=== PATIENT | female | born 1940 | race Caucasian/White ===

== ENCOUNTER 2017-11-08 19:32 | Inpatient (IN) | payer MEDICARE, BC ==
[~2017-11-08] VITALS: Ht 162.6 cm; Wt 68.0 kg
[2017-11-08] MEDS ORDERED: CHOL200078 PO (20:02)
[2017-11-08] MEDS ORDERED: ESCI20TA PO (20:02)
[2017-11-08] MEDS ORDERED: MULT1TAB73 PO (20:02)
[2017-11-08] MEDS ORDERED: PRAV10TA40 PO (20:02)
[2017-11-08] MEDS ORDERED: LISI10TA5 PO (20:02)
[2017-11-08 20:11] LABS: BASOPHILS # (AUTO) 0.1 K/uL (0.0-8.0); EOSINOPHILS # (AUTO) 0.1 K/uL (0.0-0.7); EOSINOPHILS % (AUTO) 1.3 % (0.0-7.0); HEMATOCRIT 36.5 % (31.2-41.9); HEMOGLOBIN 12.3 g/dL (10.9-14.3); LYMPHOCYTES # (AUTO) 1.7 K/uL (20.0-40.0); LYMPHOCYTES % (AUTO) 24.2 % (20.5-51.5); MEAN CORPUSCULAR HEMOGLOBIN 29.7 uug (24.7-32.8); MEAN CORPUSCULAR HGB CONC 34 g/dL (32.3-35.6); MONOCYTES # (AUTO) 0.5 K/uL (2.0-10.0); MONOCYTES % (AUTO) 7.4 % (0.0-11.0); NEUTROPHILS # (AUTO) 4.6 K/uL (1.8-8.9); NEUTROPHILS % (AUTO) 66.1 % (38.5-71.5); PLATELET COUNT (AUTO) 164 K/uL (179-408); RED BLOOD CELL COUNT(AUTO) 4.15 MIL/uL (3.63-4.92)
[2017-11-08 20:25] LABS: CARBON DIOXIDE 28 mmol/L (21-32); CHLORIDE 105 mmol/L (98-107); CREATININE 1.1 mg/dL (0.6-1.3); GLUCOSE 84 mg/dL (74-106); UREA NITROGEN, BLOOD 20 mg/dL (7-18)
[2017-11-08 20:34] LABS: ALANINE AMINOTRANSFERASE 20 U/L (14-59); ALKALINE PHOSPHATASE 52 U/L (50-136); ASPARTATE AMINOTRANSFERASE 30 U/L (15-37); BILIRUBIN,DIRECT 0.1 mg/dL (0.0-0.2); BILIRUBIN,TOTAL 0.3 mg/dL (0.2-1.0); TOTAL PROTEIN, SERUM 7.2 g/dL (6.4-8.2)
[2017-11-08] MEDS ORDERED: ONDANSETRON 4 MG/2 ML VIAL IV ONE (20:45)
[2017-11-08] MEDS ORDERED: MORPHINE SULFATE 2 MG/1 ML DISP.SYRIN IV ONE (20:45)
[2017-11-08] MEDS ORDERED: MORPHINE SULFATE 4 MG/1 ML DISP.SYRIN ONE (20:56)
--- NOTE | 2017-11-08 20:56 | NUR ---
Call placed to [facility] FERNANDEZ speaking with Magui Phillips.
[2017-11-08] MEDS ORDERED: ONDANSETRON 4 MG/2 ML VIAL ONE (20:57)
[2017-11-08] MEDS ORDERED: MORPHINE SULFATE 2 MG/1 ML DISP.SYRIN ONE (20:57)
--- NOTE | 2017-11-08 21:02 | NUR ---
Call placed to Dr. Galdamez (ORTH[facility]), will be paged.
--- NOTE | 2017-11-08 21:31 | NUR ---
Pt. admitted to [facility], under care of Magui Phillips Belongs List completed
[2017-11-08 22:00] VITALS: BP 144/65
--- NOTE | 2017-11-08 22:00 | NUR ---
nsg: Pt received a/o x 4 fr er with dx of left hip fracture. c/o left hip pain, 06/18. stated morphine that was given in er did not work. v/s stable. on bedrest. patient refused f/c insertion. cont to monitor.
[2017-11-08] MEDS ORDERED: ALEN70TA3 PO (22:43)
[2017-11-08] MEDS ORDERED: ZOLPIDEM 5 MG TABLET PO PRN (23:00)
[2017-11-08] MEDS ORDERED: MAGNESIUM HYDROXIDE 30 ML LIQUID UDC PO PRN (23:00)
[2017-11-08] MEDS ORDERED: ACETAMINOPHEN 325 MG TABLET PO PRN (23:00)
[2017-11-08] MEDS ORDERED: ONDANSETRON 4 MG/2 ML VIAL IV PRN (23:00)
[2017-11-08] MEDS: HYDROMORPHONE 2 MG/1 ML DISP.SYRIN IV PRN (23:22)
[2017-11-08] MEDS: ENOXAPARIN SODIUM 40 MG/0.4 ML DISP.SYRIN SQ SCH (23:23)
[2017-11-08] MEDS: IV NS 1000 ML 1,000 ML IV PRN (23:24)
[2017-11-08] MEDS ORDERED: HYDROMORPHONE 2 MG/1 ML DISP.SYRIN ONE (23:30)
[2017-11-08] MEDS ORDERED: ENOXAPARIN SODIUM 40 MG/0.4 ML DISP.SYRIN SQ ONE (23:30)
--- NOTE | 2017-11-08 23:53 | NUR ---
CATY spoke to Dr. Galdamez.
[2017-11-09 03:54] VITALS: BP 122/59
[2017-11-09] MEDS: HYDROMORPHONE 2 MG/1 ML DISP.SYRIN IV PRN (03:56)
[2017-11-09] MEDS ORDERED: HYDROMORPHONE 2 MG/1 ML DISP.SYRIN ONE (04:11)
--- NOTE | 2017-11-09 05:21 | NUR ---
nsg: no acute distress noted. denies discomfort. tele, SR. kept clean and dry. repositioned. all needs attended. Addendum: 11/09/17 at 0554 by LOS ABEBE RN WRONG PATIENT.......
--- NOTE | 2017-11-09 05:22 | NUR ---
NSG: UNABLE TO INSERT F/C. CHARGE NURSE AND I ATTEMPTED TO INSERT F/C WITH NO SUCCESS.
--- NOTE | 2017-11-09 06:00 | NUR ---
NSG: PT COMFORTABLE IN BED AT THIS TIME. UNABLE TO INSERT F/C. ON BEDREST. CONT WITH TREATMENT PLAN.
[2017-11-09 07:03] LABS: BASOPHILS % (AUTO) 0.5 % (0.0-2.0); EOSINOPHILS % (AUTO) 0.4 % (0.0-7.0); HEMATOCRIT 33.7 % (31.2-41.9); HEMOGLOBIN 11.3 g/dL (10.9-14.3); LYMPHOCYTES # (AUTO) 1.3 K/uL (20.0-40.0); LYMPHOCYTES % (AUTO) 17.2 % (20.5-51.5); MEAN CORPUSCULAR HEMOGLOBIN 29.5 uug (24.7-32.8); MEAN CORPUSCULAR HGB CONC 34 g/dL (32.3-35.6); MEAN CORPUSCULAR VOLUME 88.1 fL (75.5-95.3); MONOCYTES # (AUTO) 0.7 K/uL (2.0-10.0); MONOCYTES % (AUTO) 9.5 % (0.0-11.0); NEUTROPHILS # (AUTO) 5.3 K/uL (1.8-8.9); NEUTROPHILS % (AUTO) 72.4 % (38.5-71.5); PLATELET COUNT (AUTO) 144 K/uL (179-408); RED BLOOD CELL COUNT(AUTO) 3.83 MIL/uL (3.63-4.92); WHITE BLOOD COUNT (AUTO) 7.4 K/uL (3.8-11.8)
[2017-11-09 07:21] LABS: CARBON DIOXIDE 28 mmol/L (21-32); CHLORIDE 108 mmol/L (98-107); CHOLESTEROL 190 mg/dL (<200); CREATININE 1.1 mg/dL (0.6-1.3); GLUCOSE 86 mg/dL (74-106); HDL CHOLESTEROL 79 mg/dL (40-60); MAGNESIUM 1.7 mg/dL (1.8-2.4); PHOSPHOROUS 3.9 mg/dL (2.5-4.9); POTASSIUM 4.7 mmol/L (3.5-5.1); TRIGLYCERIDES 68 MG/DL (30-150); UREA NITROGEN, BLOOD 19 mg/dL (7-18)
--- NOTE | 2017-11-09 07:30 | NUR ---
NSG: PT COMFORTABLE IN BED AT THIS TIME. PT IS AXOX4 ON BEDREST. CONT WITH TREATMENT PLAN.
[2017-11-09] MEDS: ESCITALOPRAM OXALATE 10 MG TABLET PO SCH (08:02)
[2017-11-09] MEDS: MULTIVITAMINS,THERAPEUTIC TABLET PO SCH (08:03)
[2017-11-09] MEDS: CHOLECALCIFEROL 1,000 UNIT TABLET PO SCH (08:03)
[2017-11-09] MEDS: LISINOPRIL 10 MG TABLET PO SCH (08:03)
[2017-11-09] MEDS: HYDROCODONE/APAP 5-325MG TABLET PO PRN (08:34)
[2017-11-09] MEDS ORDERED: Medication Not On Formulary EA (Escitalopram Oxalate (Lexapro) 20 MG) PO SCH (09:00)
[2017-11-09] MEDS ORDERED: Medication Not On Formulary EA (Pravastatin Sodium 10 MG) PO SCH (09:00)
[2017-11-09] MEDS ORDERED: Medication Not On Formulary EA (Multivitamins (Multivitamin) 1 EACH) PO SCH (09:00)
[2017-11-09] MEDS: HYDROMORPHONE 4 MG/1 ML DISP.SYRIN IV PRN ×2 (09:43→20:48)
[2017-11-09 11:42] VITALS: BP 115/50
--- NOTE | 2017-11-09 12:00 | NUR ---
PT SEEN BY DR PEREZ
[2017-11-09] MEDS ORDERED: MAGNESIUM OXIDE 400 MG TABLET PO ONE (13:45)
[2017-11-09 16:25] VITALS: BP 124/73
[2017-11-09] MEDS: IV NS 1000 ML 1,000 ML IV PRN (17:41)
[2017-11-09 19:30] VITALS: BP 132/57
--- NOTE | 2017-11-09 19:51 | NUR ---
RECEIVED SHIFT REPORT FROM DAY SHIFT NURSE. A/OX4, STABLE CONDITION, NO S/S OF DISTRESS. PATIENT HAVING SURGERY TOMORROW, UNKNOWN TIME. NPO AFTER MIDNIGHT. PAIN MANAGEMENT WILL BE PROVIDED. BED IN LOCKED/LOW POSITION, SIDE RAILS UP X2, BED ALARM ON, CALL LIGHT WITHIN REACH. SAFETY/ COMFORT WILL BE PROVIDED.
[2017-11-09] MEDS: ATORVASTATIN 10 MG TABLET PO SCH (21:15)
[2017-11-09] MEDS: ENOXAPARIN SODIUM 40 MG/0.4 ML DISP.SYRIN SQ SCH (23:00)
--- NOTE | 2017-11-09 23:28 | NUR ---
NON-ADMINISTRATION: LOVENOX 40 MG, LOW PLATELET COUNT OF 144.
[2017-11-10 04:00] VITALS: BP 145/81
[2017-11-10 07:46] LABS: BASOPHILS % (AUTO) 0.5 % (0.0-2.0); EOSINOPHILS % (AUTO) 0.3 % (0.0-7.0); HEMATOCRIT 35.3 % (31.2-41.9); HEMOGLOBIN 11.8 g/dL (10.9-14.3); LYMPHOCYTES # (AUTO) 1.2 K/uL (20.0-40.0); LYMPHOCYTES % (AUTO) 13.9 % (20.5-51.5); MEAN CORPUSCULAR HEMOGLOBIN 29.4 uug (24.7-32.8); MEAN CORPUSCULAR HGB CONC 34 g/dL (32.3-35.6); MEAN CORPUSCULAR VOLUME 87.8 fL (75.5-95.3); MONOCYTES # (AUTO) 0.9 K/uL (2.0-10.0); MONOCYTES % (AUTO) 10.3 % (0.0-11.0); NEUTROPHILS # (AUTO) 6.5 K/uL (1.8-8.9); PLATELET COUNT (AUTO) 131 K/uL (179-408); RED BLOOD CELL COUNT(AUTO) 4.02 MIL/uL (3.63-4.92); WHITE BLOOD COUNT (AUTO) 8.6 K/uL (3.8-11.8)
[2017-11-10 08:04] LABS: ALANINE AMINOTRANSFERASE 13 U/L (14-59); ALKALINE PHOSPHATASE 51 U/L (50-136); ASPARTATE AMINOTRANSFERASE 28 U/L (15-37); BILIRUBIN,TOTAL 0.7 mg/dL (0.2-1.0); CARBON DIOXIDE 27 mmol/L (21-32); CHLORIDE 102 mmol/L (98-107); CREATININE 0.9 mg/dL (0.6-1.3); GLUCOSE 106 mg/dL (74-106); MAGNESIUM 1.8 mg/dL (1.8-2.4); PHOSPHOROUS 3.2 mg/dL (2.5-4.9); POTASSIUM 4.4 mmol/L (3.5-5.1); TOTAL PROTEIN, SERUM 6.6 g/dL (6.4-8.2); UREA NITROGEN, BLOOD 12 mg/dL (7-18)
[2017-11-10] MEDS: HYDROCODONE/APAP 5-325MG TABLET PO PRN (08:47)
[2017-11-10] MEDS: MULTIVITAMINS,THERAPEUTIC TABLET PO SCH (08:52)
[2017-11-10] MEDS: CHOLECALCIFEROL 1,000 UNIT TABLET PO SCH (08:52)
[2017-11-10] MEDS: ESCITALOPRAM OXALATE 10 MG TABLET PO SCH (08:52)
[2017-11-10] MEDS: LISINOPRIL 10 MG TABLET PO SCH (08:53)
[2017-11-10] MEDS ORDERED: POLYMYXIN B SULFATE 500,000 UNITS, BACITRACIN 50,000 UNITS, NORMAL SALINE 20 ML MC ONE ×3 (10:00)
--- NOTE | 2017-11-10 10:00 | NUR ---
client has orders for compound: polymyxin B Sulfate Bacitracin, Sodium Chloride 0.9%, pharmacy was called to about the drug order. Pharmacist stated it was order but D/C as soon as the order was placed. Med not given
[2017-11-10 12:14] VITALS: BP 155/65
[2017-11-10] MEDS: HYDROMORPHONE 4 MG/1 ML DISP.SYRIN IV PRN (12:53)
[2017-11-10] MEDS ORDERED: SEVOFLURANE 250 ML BOTTLE IH ONE (15:42)
[2017-11-10] MEDS ORDERED: PROPOFOL 200 MG/20 ML BOTTLE IV ONE (15:42)
[2017-11-10] MEDS ORDERED: IV LACTATED RINGERS SOLUTION 1,000 ML BAG IV ONE (15:42)
[2017-11-10] MEDS ORDERED: LIDOCAINE HCL-MPF 1% 5 ML VIAL MC ONE (15:42)
[2017-11-10] MEDS ORDERED: DEXAMETHASONE SOD PHOSPHATE 4 MG INJ IV ONE (15:42)
[2017-11-10] MEDS ORDERED: CEFAZOLIN 1 G VIAL MC ONE (15:42)
[2017-11-10] MEDS ORDERED: ONDANSETRON 4 MG/2 ML VIAL IV ONE (15:42)
[2017-11-10 16:00] VITALS: BP 153/53
--- NOTE | 2017-11-10 16:30 | NUR ---
Client went down for surgery accompanied by two surgical nurses, v/s rojas. Brother is by bedside.
[2017-11-10] MEDS ORDERED: FENTANYL CITRATE 100 MCG/2 ML AMPUL ONE ×3 (17:29→19:49)
--- NOTE | 2017-11-10 18:00 | NUR ---
Client has been moved from room 229 to room 220. Client is still downstairs waiting for surgery
[2017-11-10] MEDS ORDERED: CEFAZOLIN 50 ML IV ONE (19:05)
[2017-11-10] MEDS ORDERED: LABETALOL HCL 100 MG/20 ML VIAL ONE (19:13)
[2017-11-10] MEDS ORDERED: IV D5W-0.45% NS +20 KCL 1,000 ML IV ONE (19:25)
[2017-11-10 20:00] VITALS: BP 137/71
--- NOTE | 2017-11-10 20:00 | NUR ---
NURSING CLINICAL NOTE: Pt received from OR, S/P left hip surgery. pt is A&O X 4. on 2 l o2 via NC, sating well. VSS, no episodes of N/V . complains of sever pain on the left hip, morphine 4 mg is given with some relief. surgical site is intact, no bleeding, neurovascular check is done on the left leg, found intact and normal. will continue to monitor for any changes on the patient's condition.
[2017-11-10] MEDS: MORPHINE SULFATE 4 MG/1 ML DISP.SYRIN IV PRN (20:30)
[2017-11-10] MEDS: ATORVASTATIN 10 MG TABLET PO SCH (20:30)
[2017-11-11] VITALS (7 sets, daily range): BP systolic 86–116; BP diastolic 38–70
[2017-11-11] MEDS: CEFAZOLIN 1 G in PREMIXED 1 EACH IV SCH ×2 (02:15→11:04)
[2017-11-11] MEDS: MORPHINE SULFATE 4 MG/1 ML DISP.SYRIN IV PRN ×3 (05:40→16:17)
[2017-11-11] MEDS ORDERED: ALENDRONATE SODIUM 70 MG TABLET PO SCH (06:00)
--- NOTE | 2017-11-11 06:52 | NUR ---
END OF SHIFT SUMMERY: Pt is A&O X 4. on 2 L via NC, sating well. S/P Right hip orif. surgical dressing is intact, no S/S of bleeding or drainage noted. pt still complained of moderate to sever pain on the surgical site, morphine is given with some relief. no episodes of N/V throughout shift. will continue to monitor and endorse patient to the next nurse to follow up.
[2017-11-11] MEDS: MULTIVITAMINS,THERAPEUTIC TABLET PO SCH (08:23)
[2017-11-11] MEDS: CHOLECALCIFEROL 1,000 UNIT TABLET PO SCH (08:24)
[2017-11-11] MEDS: ESCITALOPRAM OXALATE 10 MG TABLET PO SCH (08:24)
[2017-11-11] MEDS: LISINOPRIL 10 MG TABLET PO SCH (08:24)
[2017-11-11] MEDS: ENOXAPARIN SODIUM 40 MG/0.4 ML DISP.SYRIN SQ SCH (08:25)
[2017-11-11] MEDS: POTASSIUM CHLORIDE 20 MEQ in IV D5 1/2 NS 1000 ML 1,000 ML IV PRN (09:12)
--- NOTE | 2017-11-11 21:19 | NUR ---
NURSING CLINICAL NOTE: Pt has a BP of 86/45 mmHg, denies pain, feels mild fussyMD.patricio is notified, ordered to keep monitoring the patient. will continue to monitor
[2017-11-11] MEDS: ATORVASTATIN 10 MG TABLET PO SCH (21:23)
[2017-11-12] VITALS (9 sets, daily range): BP systolic 79–117; BP diastolic 40–69
[2017-11-12 06:57] LABS: BASOPHILS % (AUTO) 0.3 % (0.0-2.0); EOSINOPHILS # (AUTO) 0.2 K/uL (0.0-0.7); EOSINOPHILS % (AUTO) 2.4 % (0.0-7.0); HEMATOCRIT 26.5 % (31.2-41.9); HEMOGLOBIN 8.9 g/dL (10.9-14.3); LYMPHOCYTES # (AUTO) 1.8 K/uL (20.0-40.0); LYMPHOCYTES % (AUTO) 22.4 % (20.5-51.5); MEAN CORPUSCULAR HEMOGLOBIN 29.4 uug (24.7-32.8); MEAN CORPUSCULAR HGB CONC 34 g/dL (32.3-35.6); MEAN CORPUSCULAR VOLUME 87.6 fL (75.5-95.3); MONOCYTES # (AUTO) 0.8 K/uL (2.0-10.0); MONOCYTES % (AUTO) 9.9 % (0.0-11.0); NEUTROPHILS # (AUTO) 5.3 K/uL (1.8-8.9); PLATELET COUNT (AUTO) 145 K/uL (179-408); RED BLOOD CELL COUNT(AUTO) 3.02 MIL/uL (3.63-4.92); WHITE BLOOD COUNT (AUTO) 8.1 K/uL (3.8-11.8)
[2017-11-12 07:03] LABS: CARBON DIOXIDE 29 mmol/L (21-32); CHLORIDE 107 mmol/L (98-107); GLUCOSE 118 mg/dL (74-106); PHOSPHOROUS 2.7 mg/dL (2.5-4.9); POTASSIUM 4.3 mmol/L (3.5-5.1); UREA NITROGEN, BLOOD 22 mg/dL (7-18)
--- NOTE | 2017-11-12 08:00 | NUR ---
Awake, alert, oriented x 4. IVF infusing. Pain scale 2/10
[2017-11-12] MEDS: ESCITALOPRAM OXALATE 10 MG TABLET PO SCH (09:04)
[2017-11-12] MEDS: LISINOPRIL 10 MG TABLET PO SCH (09:05)
[2017-11-12] MEDS: CHOLECALCIFEROL 1,000 UNIT TABLET PO SCH (09:05)
[2017-11-12] MEDS: HYDROCODONE/APAP 10-325 MG TABLET PO PRN (09:06)
[2017-11-12] MEDS: ENOXAPARIN SODIUM 40 MG/0.4 ML DISP.SYRIN SQ SCH (09:07)
[2017-11-12] MEDS: MULTIVITAMINS,THERAPEUTIC TABLET PO SCH (09:07)
[2017-11-12 11:00] LABS: MAGNESIUM 1.8 mg/dL (1.8-2.4)
--- NOTE | 2017-11-12 12:00 | NUR ---
Noted light headed and BP decreased when getting up with PT. Dr. Rooney informed, with orders for Orthostatic BP, taken and recorded. IV bolus of NS 2 Liters ordered, started.
[2017-11-12] MEDS: IV NS 1000 ML 1,000 ML IV PRN ×2 (12:20→16:48)
[2017-11-12] MEDS ORDERED: ALPRAZOLAM 0.25 MG TABLET PO PRN (17:15)
--- NOTE | 2017-11-12 17:30 | NUR ---
Crying, anxious with panic attacks about family events. Dr. Rooney informed with orders for Xanax po given.
[2017-11-12] MEDS: POTASSIUM CHLORIDE 20 MEQ in IV D5 1/2 NS 1000 ML 1,000 ML IV PRN (17:40)
--- NOTE | 2017-11-12 18:08 | NUR ---
Resting, calmer. IVF infusing. Denies pain
--- NOTE | 2017-11-12 19:30 | NUR ---
PT AWAKE IN BED. PT IV SITE INTACT AND PATENT. PT BLOOD PRESSURE IS 99/55. CALL LIGHT WITHIN REACH. BED ALARM ON. SAFETY AND COMFORT PROVIDED.
[2017-11-12] MEDS: ATORVASTATIN 10 MG TABLET PO SCH (22:00)
--- NOTE | 2017-11-13 06:00 | NUR ---
PT SLEPT COMFORTABLY. VITAL SIGNS WITHIN NORMAL LIMIT. NO SIGN OF DISTRESS. IV SITE INTACT AND PATENT. CALL LIGHT WITHIN REACH. BED ALARM ON. SAFETY AND COMFORT PROVIDED.
[2017-11-13 06:25] VITALS: BP 113/43
[2017-11-13 06:31] LABS: CARBON DIOXIDE 27 mmol/L (21-32); CHLORIDE 108 mmol/L (98-107); CREATININE 0.8 mg/dL (0.6-1.3); GLUCOSE 115 mg/dL (74-106); POTASSIUM 4.4 mmol/L (3.5-5.1); UREA NITROGEN, BLOOD 18 mg/dL (7-18)
[2017-11-13] MEDS: POTASSIUM CHLORIDE 20 MEQ in IV D5 1/2 NS 1000 ML 1,000 ML IV PRN (06:38)
--- NOTE | 2017-11-13 06:45 | NUR ---
REMOVED LOYA FOR THE PT.PT TOLERATED THE PROCEDURE WELL. NO SIGN OF DISTRESS OR DISCOMFORT. ENDORSE TO DAY SHIFT RN TO MONITOR URINE OUTPUT. SAFETY AND COMFORT PROVIDED.
[2017-11-13 06:55] LABS: BASOPHILS % (AUTO) 0.6 % (0.0-2.0); EOSINOPHILS # (AUTO) 0.2 K/uL (0.0-0.7); EOSINOPHILS % (AUTO) 3.3 % (0.0-7.0); HEMATOCRIT 23.6 % (31.2-41.9); HEMOGLOBIN 8.2 g/dL (10.9-14.3); LYMPHOCYTES # (AUTO) 1.8 K/uL (20.0-40.0); LYMPHOCYTES % (AUTO) 23.3 % (20.5-51.5); MEAN CORPUSCULAR HEMOGLOBIN 30.1 uug (24.7-32.8); MEAN CORPUSCULAR HGB CONC 35 g/dL (32.3-35.6); MEAN CORPUSCULAR VOLUME 87.1 fL (75.5-95.3); MONOCYTES # (AUTO) 0.8 K/uL (2.0-10.0); MONOCYTES % (AUTO) 10.7 % (0.0-11.0); NEUTROPHILS # (AUTO) 4.7 K/uL (1.8-8.9); NEUTROPHILS % (AUTO) 62.1 % (38.5-71.5); PLATELET COUNT (AUTO) 157 K/uL (179-408); RED BLOOD CELL COUNT(AUTO) 2.71 MIL/uL (3.63-4.92); WHITE BLOOD COUNT (AUTO) 7.5 K/uL (3.8-11.8)
--- NOTE | 2017-11-13 07:10 | NUR ---
RECEIVED REPORT FROM FIELD AIDE NURSE, PATIENT IN BED ASLEEP, NO EVIDENCE OF DISTRESS NOTED. BED IN LOW POSITION, SIDE RAILS UP X2.
[2017-11-13] MEDS: LISINOPRIL 10 MG TABLET PO SCH (09:00)
[2017-11-13] MEDS: CHOLECALCIFEROL 1,000 UNIT TABLET PO SCH (09:08)
[2017-11-13] MEDS: MULTIVITAMINS,THERAPEUTIC TABLET PO SCH (09:08)
[2017-11-13] MEDS: HYDROCODONE/APAP 10-325 MG TABLET PO PRN ×2 (09:08→12:54)
[2017-11-13] MEDS: ESCITALOPRAM OXALATE 10 MG TABLET PO SCH (09:08)
[2017-11-13] MEDS: ENOXAPARIN SODIUM 40 MG/0.4 ML DISP.SYRIN SQ SCH (09:13)
[2017-11-13 11:06] VITALS: BP 124/46
[2017-11-13 11:07] VITALS: BP 97/30
--- NOTE | 2017-11-13 12:00 | NUR ---
PATIENT GOT UP WITH PHYSICAL THERAPY, AND TOOK A FEW STEPS, TOLERATED WELL.
[2017-11-13] MEDS ORDERED: HYDR-548 PO (13:05)
[2017-11-13] MEDS ORDERED: ENOX40DI SQ (13:05)
[2017-11-13 15:15] VITALS: BP 136/56
--- NOTE | 2017-11-13 17:50 | NUR ---
PATIENT WAS TRANSFERRED TO ARU, ALL BELONGINGS ACCOUNTED FOR AND DISCHARGE TEACHING PERFORMED, NO EVIDENCE OF DISTRESS NOTED BESIDES SOME MILD PAIN AT SURGICAL HIP.
--- NOTE | 2017-11-13 18:09 | NUR ---
Patient discharged to Acute Rehab unit to assist patient with Physical therapy and therapy needs. Family aware.
== END 2017-11-13 17:30 | DRG 480 ==
LOC: ER 19:33 → MED 21:22
PROVIDERS: ADMIT Nurse Practitioner Acute Care; ATTEND Nurse Practitioner Acute Care
PROC: 0QS736Z Reposition Left Upper Femur with Intramedullary Internal Fixation Device, Percutaneous Approach (ICD-10-PCS; principal; 2017-11-10 17:17)
DX: S72.142A Displaced intertrochanteric fracture of left femur, initial encounter for closed fracture (principal); N17.0 Acute kidney failure with tubular necrosis; D68.59 Other primary thrombophilia; D62 Acute posthemorrhagic anemia; I11.9 Hypertensive heart disease without heart failure; E78.5 Hyperlipidemia, unspecified; F32.9 Major depressive disorder, single episode, unspecified; W01.0XXA Fall on same level from slipping, tripping and stumbling without subsequent striking against object, initial encounter; Y93.89 Activity, other specified; Y92.480 Sidewalk as the place of occurrence of the external cause; M81.0 Age-related osteoporosis without current pathological fracture; Y93.01 Activity, walking, marching and hiking; I95.1 Orthostatic hypotension; E16.2 Hypoglycemia, unspecified; Z79.899 Other long term (current) drug therapy; Z79.83 Long term (current) use of bisphosphonates; F41.9 Anxiety disorder, unspecified; D69.6 Thrombocytopenia, unspecified
CPT/HCPCS: 36415; 70030-TC; 73502; 76000; 83735; 84100; 84443; 85025; 85730; 86850; 86900; 86901; 93005; 97110; 97116; 97530; A4649; A4663; J0690; J1100; J1170; J1650; J2270; J2405; J3010; J3480; J3490; J7030; J7120

== ENCOUNTER 2017-11-13 18:27 | Inpatient (IN) | payer MEDICARE, BC ==
[~2017-11-13] VITALS: Ht 162.6 cm; Wt 67.1 kg
--- NOTE | 2017-11-13 17:45 | NUR ---
ADMITTED FROM MED-SURG IN STABLE CONDITION. ALERT ORIENTED X4. WITH PAIN OVER LEFT HIP RATED 6/10. NOT IN ANY FORM OF DISTRESS. ROUTINE ADMISSION CARE DONE. ORIENTED TO STAFF AND UNIT.
[~2017-11-13 18:27] MED LIST: ALEN70TA3 PO; CHOL200078 PO; ENOX40DI SQ; ESCI20TA PO; HYDR-548 PO; LISI10TA5 PO; MULT1TAB73 PO; PRAV10TA40 PO
[2017-11-13 18:33] VITALS: BP 131/59
[2017-11-13] MEDS ORDERED: Z GUARD REMEDY PASTE 57 GM TUBE TOP PRN (18:45)
--- NOTE | 2017-11-13 20:15 | NUR ---
INFORMED DR. DANIELS AND DR. RAI OF ADMISSION. DR. DANIELS CONFIRMED AND WILL DO MEDICATION RECONCILIATION
[2017-11-13 20:34] VITALS: BP 109/55
[2017-11-13] MEDS: HYDROCODONE/APAP 10-325 MG TABLET PO PRN (21:00)
[2017-11-13] MEDS: ATORVASTATIN 10 MG TABLET PO SCH (21:00)
--- NOTE | 2017-11-14 03:58 | NUR ---
quiet night.aaox4 needs attended. fall precautions maintained. no acute distress noted. denies any pain nor any discomfort. Left hip dressing clean dry and intact. will monitor patient. incontinent of urine x2. no BM yet. kept clean and dry.
[2017-11-14] MEDS: ESCITALOPRAM OXALATE 10 MG TABLET PO SCH (09:40)
[2017-11-14] MEDS: MULTIVITAMINS,THERAPEUTIC TABLET PO SCH (09:40)
[2017-11-14] MEDS: CHOLECALCIFEROL 1,000 UNIT TABLET PO SCH (09:40)
[2017-11-14] MEDS: LISINOPRIL 10 MG TABLET PO SCH (09:41)
[2017-11-14] MEDS: ENOXAPARIN SODIUM 40 MG/0.4 ML DISP.SYRIN SQ SCH (09:48)
[2017-11-14 10:12] VITALS: BP_SYST 118; BP_DIAS 58; BP_DIAS 67
[2017-11-14] MEDS: HYDROCODONE/APAP 10-325 MG TABLET PO PRN ×2 (10:47→18:40)
--- NOTE | 2017-11-14 12:09 | NUR ---
SBAR report received, board updated. Pt awake, alert, oriented. Pt assessed, no SOB or acute distress noted. Incisional pain 6/10 reported to be managed by PRN pain medication. Pt compliant with all routine morning medications. Bed in low position, locked, and alarm set. Call light within reach. Pt reminded to utilize call light for assistance. All safety and comfort needs met at this time. Breakfast served.
[2017-11-14] MEDS ORDERED: MIRALAX 17 GM POWD.PACK PO PRN (16:45)
--- NOTE | 2017-11-14 17:55 | NUR ---
Pt ate dinner sitting in semi-fowlers, with visitors at the bedside. Pt has continued to deny pain during this shift. Call light placed within reach, bed alarm on, and Pt reminded to utilize call light to address needs. All safety and comfort measures met at this time. Will continue to monitor Pt and endorse.
[2017-11-14] MEDS: DOCUSATE SODIUM 100 MG CAPSULE PO SCH ×2 (18:39→20:55)
--- NOTE | 2017-11-14 19:30 | NUR ---
Received patient in bed. Alert and verbally responsive. Able to make needs known. Denies any pain and discomfort. No acute distress. No SOB. Kept clean and dry. Left hip dressing intact. All needs attended to promptly. Call light within reach. Will continue to monitor.
[2017-11-14 20:26] VITALS: BP 107/52
[2017-11-14] MEDS: SENNOSIDES 1 TABLET PO SCH (20:55)
[2017-11-14] MEDS: ATORVASTATIN 10 MG TABLET PO SCH (20:55)
[2017-11-15] MEDS: HYDROCODONE/APAP 10-325 MG TABLET PO PRN ×4 (01:49→20:35)
--- NOTE | 2017-11-15 06:00 | NUR ---
Patient slept comfortably throughout the night. No c/o pain and discomfort. No acute distress. No SOB. Left hip dressing kept clean and intact. All needs attended to promptly. Call light within reach. Will continue to monitor.
[2017-11-15 07:03] VITALS: BP 113/57
[2017-11-15] MEDS: DOCUSATE SODIUM 100 MG CAPSULE PO SCH ×2 (09:02→20:31)
[2017-11-15] MEDS: ESCITALOPRAM OXALATE 10 MG TABLET PO SCH (09:02)
[2017-11-15] MEDS: LISINOPRIL 10 MG TABLET PO SCH (09:02)
[2017-11-15] MEDS: MULTIVITAMINS,THERAPEUTIC TABLET PO SCH (09:02)
[2017-11-15] MEDS: CHOLECALCIFEROL 1,000 UNIT TABLET PO SCH (09:03)
[2017-11-15] MEDS: ENOXAPARIN SODIUM 40 MG/0.4 ML DISP.SYRIN SQ SCH (09:04)
--- NOTE | 2017-11-15 20:30 | NUR ---
Received pt on bed awake, alert and oriented x3. Able to make needs known. No acute distress noted. Complained of left hip pain, PRN norco given. No SOB noted. All due meds given as ordered and well tolerated. Call light within reach. Bed in lowest position. Bed alarm on. Kept clean, dry and comfortable. All needs attended.
[2017-11-15] MEDS: SENNOSIDES 1 TABLET PO SCH (20:31)
[2017-11-15] MEDS: ATORVASTATIN 10 MG TABLET PO SCH (20:31)
[2017-11-15 20:50] VITALS: BP 107/45
--- NOTE | 2017-11-16 06:11 | NUR ---
Patient slept well throughout the shift with no signs of acute distress. No complaints of pain or discomfort. No SOB noted. Kept clean, dry and comfortable. Call light within reach. All needs attended.
--- NOTE | 2017-11-16 07:00 | NUR ---
While rounding for endorsement. Per covering nightshift RN; patient is complaining of nausea on previous shift. Per patient, she has had nausea x 3 days previously. Patient is c/o pain left leg and feeling hot in room. Room is cool, patient was noted to be clammy and cool to the touch, 6/10 pain level. Call light is with in reach. Noted dressing intact on left leg with yellow drainage at incision site proximal to trochanter of hip. on dressing noted a quarter size yellow drainage. Josefina are dry and intact. Notified covering RN. No active labs at this point and time. Pending call to physician, no call back at this point and time.
[2017-11-16 07:03] VITALS: BP 122/67
--- NOTE | 2017-11-16 08:00 | NUR ---
Dressing changed done to left hip wound. Cleaned with normal saline and utilize clean technique for dressing change. Noted second incision above lateral incision with with stable at left trochanter with dry blood and kylee. No drainage noted or active bleeding, noted kylee with dry blood. Patient tolerated dressing change. Patient feels generally warm to the touch and wound is warm to the touch. Call light with in reach. continue to monitor.
[2017-11-16 08:54] LABS: CARBON DIOXIDE 25 mmol/L (21-32); CHLORIDE 106 mmol/L (98-107); CREATININE 0.8 mg/dL (0.6-1.3); GLUCOSE 105 mg/dL (74-106); UREA NITROGEN, BLOOD 19 mg/dL (7-18)
[2017-11-16] MEDS: LISINOPRIL 10 MG TABLET PO SCH (08:58)
[2017-11-16] MEDS: CHOLECALCIFEROL 1,000 UNIT TABLET PO SCH (08:58)
[2017-11-16] MEDS: ESCITALOPRAM OXALATE 10 MG TABLET PO SCH (08:58)
[2017-11-16] MEDS: MULTIVITAMINS,THERAPEUTIC TABLET PO SCH (08:58)
[2017-11-16] MEDS: ENOXAPARIN SODIUM 40 MG/0.4 ML DISP.SYRIN SQ SCH (09:00)
[2017-11-16 09:15] LABS: BASOPHILS # (AUTO) 0.1 K/uL (0.0-8.0); HEMOGLOBIN 8.9 g/dL (10.9-14.3); MONOCYTES # (AUTO) 0.9 K/uL (2.0-10.0); MONOCYTES % (AUTO) 8.6 % (0.0-11.0)
[2017-11-16] MEDS: HYDROCODONE/APAP 10-325 MG TABLET PO PRN (09:18)
[2017-11-16 09:31] LABS: BASOPHILS % (AUTO) 0.5 % (0.0-2.0); EOSINOPHILS # (AUTO) 0.3 K/uL (0.0-0.7); EOSINOPHILS % (AUTO) 2.5 % (0.0-7.0); HEMATOCRIT 25.9 % (31.2-41.9); LYMPHOCYTES # (AUTO) 1.9 K/uL (20.0-40.0); LYMPHOCYTES % (AUTO) 17.7 % (20.5-51.5); MEAN CORPUSCULAR HEMOGLOBIN 30.4 uug (24.7-32.8); MEAN CORPUSCULAR HGB CONC 35 g/dL (32.3-35.6); NEUTROPHILS # (AUTO) 7.8 K/uL (1.8-8.9); NEUTROPHILS % (AUTO) 70.7 % (38.5-71.5); RED BLOOD CELL COUNT(AUTO) 2.94 MIL/uL (3.63-4.92)
[2017-11-16 09:32] LABS: PLATELET COUNT (AUTO) 295 K/uL (179-408)
[2017-11-16] MEDS: DOCUSATE SODIUM 100 MG CAPSULE PO SCH ×2 (10:34→20:39)
--- NOTE | 2017-11-16 11:57 | NUR ---
While rounding. Nurse was notified that patient was having an anxiety episode. Per patient, contacted family at home and "personal," issues at home and it caused her to have an anxiety episode. Will call Doctor to obtain an order, no prn anxiety medication on med profile. Call light with in reach.
[2017-11-16] MEDS: BOOST PLUS 237 ML LIQUID (VERY VANILLA) PO SCH ×2 (12:53→17:07)
[2017-11-16] MEDS: OXYCODONE/APAP 5-325 MG TABLET PO PRN ×2 (14:05→20:39)
--- NOTE | 2017-11-16 14:05 | NUR ---
chief complaint left leg pain. Patient teaching on sitting up in chair through out the day to improve tolerance to ambulating and discomfort due to laying in bed. Patient verbalized understanding of instructions given. Call light with in reach. Encouraged patient to call for assistance while getting in and out of bed.
[2017-11-16] MEDS ORDERED: PIPERACILLIN SODIUM/TAZOBACTAM 4.5 G in IV DEXTROSE 5% 50 ML IV ONE (15:15)
[2017-11-16] MEDS: NEOMY/BACITRAC/POLYMI OINT 28.35 GM TUBE TOP SCH (17:08)
[2017-11-16 20:00] VITALS: BP 111/54
--- NOTE | 2017-11-16 20:03 | NUR ---
Received pt on bed awake, alert and oriented x3. Able to make needs known. No acute distress noted. No complaints of pain or discomfort during this time. No SOB noted. kept clean, dry and comfortable. Call light placed within reach. All needs attended to promptly.
[2017-11-16] MEDS: ATORVASTATIN 10 MG TABLET PO SCH (20:39)
[2017-11-16] MEDS: SENNOSIDES 1 TABLET PO SCH (20:39)
[2017-11-16] MEDS ORDERED: PIPERACILLIN SODIUM/TAZOBACTAM 4.5 G in IV DEXTROSE 5% 50 ML IV SCH (22:00)
--- NOTE | 2017-11-17 05:58 | NUR ---
Patient slept well throughout the shift. No acute distress noted. No complaints of pain or discomfort. No SOB noted. Incontinent care rendered. Call light placed within reach. All needs met
[2017-11-17 07:03] VITALS: BP 119/64
--- NOTE | 2017-11-17 07:40 | NUR ---
PATIENT NOTED RESTING IN BED WATCHING TV, STATES SHE IS HAVING ANXIETY ABOUT BEING IN THE HOSPITAL, COMPLAINS OF PAIN 5/10 FOR LEFT HIP, CALL LIGHT IN REACH, BED LOCKED AND IN LOWEST POSITION, X2 BED RAILS IN PLACE, BED ALARM IN PLACE
[2017-11-17] MEDS: ENOXAPARIN SODIUM 40 MG/0.4 ML DISP.SYRIN SQ SCH (08:42)
[2017-11-17] MEDS: ESCITALOPRAM OXALATE 10 MG TABLET PO SCH (08:45)
[2017-11-17] MEDS: BOOST PLUS 237 ML LIQUID (VERY VANILLA) PO SCH ×2 (08:45→17:08)
[2017-11-17] MEDS: ALPRAZOLAM 0.5 MG TABLET PO PRN ×2 (08:45→20:20)
[2017-11-17] MEDS: MULTIVITAMINS,THERAPEUTIC TABLET PO SCH (08:46)
[2017-11-17] MEDS: DOCUSATE SODIUM 100 MG CAPSULE PO SCH ×2 (08:46→20:22)
[2017-11-17] MEDS: CHOLECALCIFEROL 1,000 UNIT TABLET PO SCH (08:46)
[2017-11-17] MEDS: LISINOPRIL 10 MG TABLET PO SCH (08:47)
[2017-11-17] MEDS: OXYCODONE HCL 10 MG TAB.SR.12H PO SCH ×2 (08:47→20:21)
[2017-11-17] MEDS: NEOMY/BACITRAC/POLYMI OINT 28.35 GM TUBE TOP SCH ×2 (08:47→17:10)
[2017-11-17] MEDS ORDERED: OXYCODONE/APAP 5-325 MG TABLET PO SCH (09:00)
[2017-11-17] MEDS: OXYCODONE HCL 5 MG TABLET PO PRN ×3 (12:47→18:34)
[2017-11-17 19:34] VITALS: BP 103/52
[2017-11-17] MEDS: ATORVASTATIN 10 MG TABLET PO SCH (20:20)
[2017-11-17] MEDS: SENNOSIDES 1 TABLET PO SCH (20:22)
--- NOTE | 2017-11-17 20:30 | NUR ---
Received pt on bed alert, awake and oriented x3. Able to make needs known. Daughter at bedside during this time. No signs or symptoms of distress noted. Breathing even and unlabored. All due meds given as ordered. Call light placed within reach. All needs met.
[2017-11-18] MEDS: OXYCODONE HCL 5 MG TABLET PO PRN ×2 (06:21→15:30)
[2017-11-18] MEDS: ALENDRONATE SODIUM 70 MG TABLET PO SCH (06:21)
--- NOTE | 2017-11-18 07:30 | NUR ---
patient noted resting in bed watching tv, no complaints of pain at this time, no signs of distress noted, call light in reach, bed alarm in place, bed locked and in lowest position, family noted at bed side.
[2017-11-18] MEDS: BOOST PLUS 237 ML LIQUID (VERY VANILLA) PO SCH ×2 (08:36→17:32)
[2017-11-18] MEDS: DOCUSATE SODIUM 100 MG CAPSULE PO SCH ×2 (08:38→20:24)
[2017-11-18] MEDS: CHOLECALCIFEROL 1,000 UNIT TABLET PO SCH (08:38)
[2017-11-18] MEDS: OXYCODONE HCL 10 MG TAB.SR.12H PO SCH ×2 (08:39→20:24)
[2017-11-18] MEDS: MULTIVITAMINS,THERAPEUTIC TABLET PO SCH (08:39)
[2017-11-18] MEDS: ESCITALOPRAM OXALATE 10 MG TABLET PO SCH (08:40)
[2017-11-18 08:41] VITALS: BP 103/36
[2017-11-18] MEDS: LISINOPRIL 10 MG TABLET PO SCH (08:46)
[2017-11-18] MEDS: NEOMY/BACITRAC/POLYMI OINT 28.35 GM TUBE TOP SCH ×2 (08:47→17:32)
[2017-11-18 08:49] LABS: BASOPHILS # (AUTO) 0.1 K/uL (0.0-8.0); EOSINOPHILS # (AUTO) 0.4 K/uL (0.0-0.7); EOSINOPHILS % (AUTO) 4.1 % (0.0-7.0); HEMATOCRIT 26.2 % (31.2-41.9); HEMOGLOBIN 8.9 g/dL (10.9-14.3); LYMPHOCYTES # (AUTO) 2.4 K/uL (20.0-40.0); LYMPHOCYTES % (AUTO) 27.7 % (20.5-51.5); MEAN CORPUSCULAR HGB CONC 34 g/dL (32.3-35.6); MEAN CORPUSCULAR VOLUME 88.7 fL (75.5-95.3); MONOCYTES # (AUTO) 0.9 K/uL (2.0-10.0); MONOCYTES % (AUTO) 10.2 % (0.0-11.0); PLATELET COUNT (AUTO) 336 K/uL (179-408); RED BLOOD CELL COUNT(AUTO) 2.95 MIL/uL (3.63-4.92); WHITE BLOOD COUNT (AUTO) 8.8 K/uL (3.8-11.8)
[2017-11-18] MEDS: ENOXAPARIN SODIUM 40 MG/0.4 ML DISP.SYRIN SQ SCH (08:50)
[2017-11-18 10:01] LABS: IRON, SERUM 55 ug/dL (50-175)
[2017-11-18 10:08] LABS: ALANINE AMINOTRANSFERASE 28 U/L (14-59); ALKALINE PHOSPHATASE 75 U/L (50-136); ASPARTATE AMINOTRANSFERASE 29 U/L (15-37); BILIRUBIN,TOTAL 0.6 mg/dL (0.2-1.0); CARBON DIOXIDE 26 mmol/L (21-32); CHLORIDE 106 mmol/L (98-107); CHOLESTEROL 156 mg/dL (<200); CREATININE 0.9 mg/dL (0.6-1.3); GLUCOSE 94 mg/dL (74-106); HDL CHOLESTEROL 48 mg/dL (40-60); MAGNESIUM 1.7 mg/dL (1.8-2.4); PHOSPHOROUS 4.1 mg/dL (2.5-4.9); POTASSIUM 4.2 mmol/L (3.5-5.1); TOTAL PROTEIN, SERUM 5.8 g/dL (6.4-8.2); TRIGLYCERIDES 72 MG/DL (30-150); UREA NITROGEN, BLOOD 21 mg/dL (7-18)
[2017-11-18 12:34] LABS: THYROID STIMULATING HORMONE 0.668 mIU/mL (0.358-3.740)
[2017-11-18 20:18] VITALS: BP 98/60
[2017-11-18] MEDS: ATORVASTATIN 10 MG TABLET PO SCH (20:23)
[2017-11-18] MEDS: SENNOSIDES 1 TABLET PO SCH (20:26)
--- NOTE | 2017-11-18 21:41 | NUR ---
resting in bed. aaox4. no acute distress noted. needs attended. daughter at bedside. medicated for pain as needed. tolerated po meds well. will monitor patient.kept comfortable. making needs known. left hip dressing clean dry and intact. incontinent of urine and BM. kept clean and dry. fall precautions maintained.siderails up for safety.
--- NOTE | 2017-11-19 06:45 | NUR ---
slept well most of the shift. no complaints presented during shift.
[2017-11-19] MEDS: BOOST PLUS 237 ML LIQUID (VERY VANILLA) PO SCH ×2 (08:00→17:14)
[2017-11-19 08:43] VITALS: BP 118/53
[2017-11-19] MEDS: DOCUSATE SODIUM 100 MG CAPSULE PO SCH ×2 (09:00→20:46)
[2017-11-19] MEDS: LISINOPRIL 10 MG TABLET PO SCH (09:00)
[2017-11-19] MEDS: MULTIVITAMINS,THERAPEUTIC TABLET PO SCH (09:18)
[2017-11-19] MEDS: CHOLECALCIFEROL 1,000 UNIT TABLET PO SCH (09:18)
[2017-11-19] MEDS: ESCITALOPRAM OXALATE 10 MG TABLET PO SCH (09:19)
[2017-11-19] MEDS: OXYCODONE HCL 10 MG TAB.SR.12H PO SCH ×2 (09:20→20:48)
[2017-11-19] MEDS: ENOXAPARIN SODIUM 40 MG/0.4 ML DISP.SYRIN SQ SCH (09:27)
[2017-11-19] MEDS: NEOMY/BACITRAC/POLYMI OINT 28.35 GM TUBE TOP SCH ×2 (09:35→17:06)
--- NOTE | 2017-11-19 10:00 | NUR ---
SBAR report received, board updated. Pt awake, alert, and oriented x4. Pt assessed to have mild-mod pain 5-6/10 r/t left hip surgical site, with no SOB. Pt compliant with all routine morning medications, but refused Colace due to recent bowel movement, pain medication administered per scheduled dose orders as pain management. Daughter remains visiting at bedside, expressing concern over mothers pain management. Pt expresses slight hesitation to participate in scheduled therapy for today. Pt reassured and plan of care for today discussed. All comfort and safety needs met at this time. Personal items and call light within reach. Will continue to monitor.
--- NOTE | 2017-11-19 12:58 | NUR ---
Pt expressing anxiety, contacted, new order received to change current dose of Xanax from HSPRN to Q8hr PRN anxiety. will continue to monitor.
[2017-11-19] MEDS: ALPRAZOLAM 0.5 MG TABLET PO PRN ×2 (13:11→22:24)
[2017-11-19] MEDS: OXYCODONE HCL 5 MG TABLET PO PRN (17:13)
--- NOTE | 2017-11-19 17:46 | NUR ---
Pt sitting up comfortably in semi-fowlers position with visitor at the bedside. Pt reports pain and Oxycodone administered per PRN orders along with routine medications. Call light within reach and Pt reminded to use for all needs. Comfort and safety measures met at this time. Will continue to monitor and endorse to shift production supervisor.
[2017-11-19] MEDS: SENNOSIDES 1 TABLET PO SCH (20:46)
[2017-11-19] MEDS: ATORVASTATIN 10 MG TABLET PO SCH (20:46)
[2017-11-19 21:08] VITALS: BP 112/70
--- NOTE | 2017-11-19 21:34 | NUR ---
resting in bed. aaox4. ambulates to the BR. Voiding well. Needs attended. On pain management. Oxycontin 10 mg given at scheduled hours. Needs attended. vital signs stable. will monitor patient,
--- NOTE | 2017-11-20 05:39 | NUR ---
slept most of the shift no complaints presented so far. no distress noted. will monitor patient. incontinent of bowel and bladder. no bm noted shift. fall precautions maintained. siderails up for safety. bed alarm on.
[2017-11-20] MEDS: CHOLECALCIFEROL 1,000 UNIT TABLET PO SCH (08:18)
[2017-11-20] MEDS: ESCITALOPRAM OXALATE 10 MG TABLET PO SCH (08:19)
[2017-11-20] MEDS: OXYCODONE HCL 10 MG TAB.SR.12H PO SCH ×2 (08:20→20:20)
[2017-11-20] MEDS: BOOST PLUS 237 ML LIQUID (VERY VANILLA) PO SCH ×2 (08:22→17:56)
[2017-11-20] MEDS: MULTIVITAMINS,THERAPEUTIC TABLET PO SCH (08:22)
[2017-11-20] MEDS: DOCUSATE SODIUM 100 MG CAPSULE PO SCH ×2 (08:22→20:20)
[2017-11-20] MEDS: ENOXAPARIN SODIUM 40 MG/0.4 ML DISP.SYRIN SQ SCH (08:23)
[2017-11-20] MEDS: NEOMY/BACITRAC/POLYMI OINT 28.35 GM TUBE TOP SCH ×2 (08:34→17:56)
--- NOTE | 2017-11-20 08:39 | NUR ---
I agree Addendum: 11/20/17 at 0840 by SHAWN SANTOS OT Amended: Links added.
--- NOTE | 2017-11-20 08:40 | NUR ---
I agree Addendum: 11/20/17 at 0842 by SHAWN SANTOS OT Amended: Links added.
[2017-11-20] MEDS: LISINOPRIL 10 MG TABLET PO SCH (09:00)
[2017-11-20 09:26] VITALS: BP 98/52
--- NOTE | 2017-11-20 13:16 | NUR ---
INTERDISCIPILINARY TEAM CONFERENCE
[2017-11-20] MEDS: OXYCODONE HCL 5 MG TABLET PO PRN ×3 (13:19→17:56)
--- NOTE | 2017-11-20 19:30 | NUR ---
Received patient from day shift nurse. shift report at bedside. patient a/o x4 with no signs of pain, sob, or acute distress. vital signs stable at start of shift. pertinent assessment completed. call light placed within reach of pt. will continue to monitor pt through shift.
[2017-11-20 19:57] VITALS: BP 117/54
[2017-11-20] MEDS: ATORVASTATIN 10 MG TABLET PO SCH (20:19)
[2017-11-20] MEDS: SENNOSIDES 1 TABLET PO SCH (20:20)
[2017-11-20] MEDS: ALPRAZOLAM 0.5 MG TABLET PO PRN (20:20)
--- NOTE | 2017-11-21 05:24 | NUR ---
PATIENT STABLE THROUGH SHIFT. NO SIGNS OF PAIN, SOB, OR ACUTE DISTRESS. VITAL SIGNS STABLE THROUGH SHIFT. ALL NEEDS ATTENDED TO. ALL MEDS ADMINISTERED ORDERED PER MD. SAFETY MEASURES IMPLEMENTED. CALL LIGHT WITHIN REACH OF PATIENT. WILL ENDORSE TO DAY SHIFT NURSE.
[2017-11-21] MEDS: OXYCODONE HCL 5 MG TABLET PO PRN ×2 (06:10→18:37)
[2017-11-21 07:30] VITALS: BP 111/48
[2017-11-21] MEDS: BOOST PLUS 237 ML LIQUID (VERY VANILLA) PO SCH ×2 (08:00→17:36)
[2017-11-21] MEDS: LISINOPRIL 10 MG TABLET PO SCH (09:00)
[2017-11-21] MEDS: DOCUSATE SODIUM 100 MG CAPSULE PO SCH ×2 (09:00→20:16)
[2017-11-21] MEDS: ESCITALOPRAM OXALATE 10 MG TABLET PO SCH (09:31)
[2017-11-21] MEDS: MULTIVITAMINS,THERAPEUTIC TABLET PO SCH (09:32)
[2017-11-21] MEDS: OXYCODONE HCL 10 MG TAB.SR.12H PO SCH ×2 (09:34→20:16)
[2017-11-21] MEDS: NEOMY/BACITRAC/POLYMI OINT 28.35 GM TUBE TOP SCH ×2 (09:37→17:36)
[2017-11-21] MEDS: CHOLECALCIFEROL 1,000 UNIT TABLET PO SCH (09:41)
[2017-11-21] MEDS: ENOXAPARIN SODIUM 40 MG/0.4 ML DISP.SYRIN SQ SCH (09:44)
--- NOTE | 2017-11-21 10:47 | NUR ---
SBAR report received, board updated. Pt assessed, no pain, SOB, or acute distress noted at this time. Pt V/S taken again 103/55, 72, BP medication Lisinipril held due to decreased BP. Plan of care discussed with Pt. Bed in lowest position, locked, with side rails up x2. All comfort and safety measures met. Personal items and call light placed within reach. Will continue to monitor.
--- NOTE | 2017-11-21 19:30 | NUR ---
patient received from day shift nurse. shift report at bedside. patient lying comfortably at start of shift with no signs of pain, sob, or acute distress. pt is a/o x4 and able to make her needs known. pertinent assessment completed. bed in low position x2 side rails up. call light placed within reach of pt. will continue to monitor pt.
--- NOTE | 2017-11-21 19:31 | NUR ---
Pt seen by MD, no new orders at this time. Pt reported pain 6-7/10 due to left hip incision, PRN pain medication administered per orders. Call light within reach. All comfort and safety measures met. Will endorse to on coming windows server architect.
[2017-11-21 20:12] VITALS: BP 103/48
[2017-11-21] MEDS: ATORVASTATIN 10 MG TABLET PO SCH (20:15)
[2017-11-21] MEDS: SENNOSIDES 1 TABLET PO SCH (20:16)
--- NOTE | 2017-11-22 05:37 | NUR ---
Patient slept well during the night. no signs of pain, sob, or acute distress. vitals stable through shift. all needs attended to. all meds administered as ordered per md. safety measures implemented. call light within reach of pt. will endorse to day shift nurse.
[2017-11-22 08:00] VITALS: BP 103/67
[2017-11-22] MEDS: BOOST PLUS 237 ML LIQUID (VERY VANILLA) PO SCH ×2 (08:02→17:06)
[2017-11-22] MEDS: MULTIVITAMINS,THERAPEUTIC TABLET PO SCH (08:21)
[2017-11-22] MEDS: DOCUSATE SODIUM 100 MG CAPSULE PO SCH ×2 (08:21→21:07)
[2017-11-22] MEDS: CHOLECALCIFEROL 1,000 UNIT TABLET PO SCH (08:21)
[2017-11-22] MEDS: ESCITALOPRAM OXALATE 10 MG TABLET PO SCH (08:21)
[2017-11-22] MEDS: OXYCODONE HCL 10 MG TAB.SR.12H PO SCH ×2 (08:22→21:38)
[2017-11-22] MEDS: ENOXAPARIN SODIUM 40 MG/0.4 ML DISP.SYRIN SQ SCH (08:26)
[2017-11-22] MEDS: LISINOPRIL 10 MG TABLET PO SCH (08:55)
[2017-11-22] MEDS: NEOMY/BACITRAC/POLYMI OINT 28.35 GM TUBE TOP SCH ×2 (08:57→17:06)
[2017-11-22] MEDS: OXYCODONE HCL 5 MG TABLET PO PRN ×2 (11:02→18:19)
--- NOTE | 2017-11-22 15:20 | NUR ---
SBAR report received, board updated. Pt assessed, Pt pain managed with PRN pain medication x1, and BP medication held due to decreased BP of 103/67, 66. No SOB or acute distress noted. Pt compliant with all other routine medications. All comfort and safety needs met. Bed in locked and lowest position, with side rails up x2. Daughter visiting at bedside. Call light and personal items within reach. Will continue to monitor.
--- NOTE | 2017-11-22 18:51 | NUR ---
Pt pain 6/10 managed with PRN pain medication. Daughter visiting at bedside. All needs met. Call light within reach. Will continue to monitor and endorse to development chemist.
--- NOTE | 2017-11-22 19:40 | NUR ---
Received patient in bed,alert and verbally responsive. Able to make needs known. Complained of pain on R hip, 03/18. No acute distress. No SOB. Kept clean and dry. Left hip dressing intact. All needs attended to promptly. Call light within reach. Will continue to monitor.
--- NOTE | 2017-11-22 19:50 | NUR ---
Received pt on bed awake, alert and oriented x3. Verbally responsive. Breathing even and nonlabored. No SOB noted. Safety measures provided. Call light within reach. Bed in lowest position. Bed alarm on. Kept clean, dry and comfortable. All needs attended.
[2017-11-22 19:57] VITALS: BP 121/53
[2017-11-22] MEDS: SENNOSIDES 1 TABLET PO SCH (21:07)
[2017-11-22] MEDS: ATORVASTATIN 10 MG TABLET PO SCH (21:07)
[2017-11-23] MEDS: OXYCODONE HCL 5 MG TABLET PO PRN ×2 (01:25→23:16)
[2017-11-23] MEDS: ESCITALOPRAM OXALATE 10 MG TABLET PO SCH (08:03)
[2017-11-23] MEDS: OXYCODONE HCL 10 MG TAB.SR.12H PO SCH ×3 (08:03→22:17)
[2017-11-23] MEDS: MULTIVITAMINS,THERAPEUTIC TABLET PO SCH (08:03)
[2017-11-23] MEDS: DOCUSATE SODIUM 100 MG CAPSULE PO SCH ×2 (08:04→21:04)
[2017-11-23] MEDS: CHOLECALCIFEROL 1,000 UNIT TABLET PO SCH (08:07)
[2017-11-23] MEDS: LISINOPRIL 10 MG TABLET PO SCH (08:11)
[2017-11-23] MEDS: ENOXAPARIN SODIUM 40 MG/0.4 ML DISP.SYRIN SQ SCH (08:11)
[2017-11-23] MEDS: BOOST PLUS 237 ML LIQUID (VERY VANILLA) PO SCH ×2 (08:11→17:12)
--- NOTE | 2017-11-23 08:29 | NUR ---
I agree Addendum: 11/23/17 at 0830 by ANNABELLA BENITEZ OT Amended: Links added.
--- NOTE | 2017-11-23 08:29 | NUR ---
I agree Addendum: 11/23/17 at 0829 by ANNABELLA BENITEZ OT Amended: Links added.
[2017-11-23] MEDS: NEOMY/BACITRAC/POLYMI OINT 28.35 GM TUBE TOP SCH ×2 (08:51→17:12)
--- NOTE | 2017-11-23 08:53 | NUR ---
SBAR report received, board updated. Pt assessed, awake, alert, and oriented x4. Pt able to make needs known. Pt reports pain 5-6/10, Scheduled pain medication administered per orders. BP medication held due to decreased readings of 103/64, 65. Plan of care and goal for today discussed. Breakfast served. Bed in low, locked position. Call light within reach. Will continue to monitor.
[2017-11-23] MEDS: ALPRAZOLAM 0.5 MG TABLET PO PRN ×2 (09:06→17:36)
--- NOTE | 2017-11-23 10:10 | NUR ---
[employer]: Biopsychosocial Assessment Bio: SW met with patient at bedside to assess for needs and provide support. Patient is a 77-year-old female admitted to ARU due functional decline and impaired mobility after hip surgery. Patient reported she had an accidental fall at home. Prior to her fall, she was independent at home. Mental Status: Patient appeared alert and oriented x4 during interview. She presented in a motivated mood with a congruent affect. She reported to be "doing fine" and in a little pain. She expressed that she is ready to go home. Patient has been in the hospital since November 13, 2017. There is no mental illness history reported. Patient is pleasant, calm, and cooperative. She appears to be coping well with OT and PT. Social: Patient is and lives with her in "her house that has no stairs." Patient denied any caregiving needs at this time. She appears to receive a great deal of support from her daughter. Patient's daughter has been very involved with treatment and discharge planning. Goals: Patient reports that her goal is to return home. Interventions: SW engaged in active listening. SW provided emotional support and counseling. SW will encourage patient to comply with rehab goals.
[2017-11-23 10:28] VITALS: BP 111/45
--- NOTE | 2017-11-23 18:39 | NUR ---
Pt sitting comfortably in semi-fowlers position. Wound care provided, dressing changed, surgical incision intact with no s/s of infection present. Pt reports mild-mod. anxiety r/t anticipating d/c and physical ability to tolerate exercises, Xanax administered per PRN anxiety orders. Pt clean and dry. Bed in locked and lowest position. All comfort and safety needs met at this time. Call light within reach. Will continue to monitor and endorse to wood window and door craftsman.
--- NOTE | 2017-11-23 19:40 | NUR ---
Seen patient during rounds, in bed awake, alert and oriented x3. Verbally responsive. Breathing even and nonlabored. No SOB noted. Safety measures provided. Call light within reach. Bed in lowest position. Bed alarm on. Kept clean, dry and comfortable. All needs attended.
[2017-11-23 20:28] VITALS: BP 103/68
[2017-11-23] MEDS: SENNOSIDES 1 TABLET PO SCH (21:04)
[2017-11-23] MEDS: ATORVASTATIN 10 MG TABLET PO SCH (21:04)
--- NOTE | 2017-11-23 22:20 | NUR ---
Patient given oxycontin 10mg at 2216. When offered last 2099, she refused stating she didn't need for her pain was only 2/10. At 2213 she requested it with 10. Med oxycontin given. will monitor the patient.
--- NOTE | 2017-11-23 23:20 | NUR ---
Patient was moaning, crying and complaining she never had this left leg pain and she can't take it. Pain was still 10/10, unrelieved by Oxycontin. Explained to her Oxycontin was just given an hour ago. Ice pack placed over the affected area. After 30mins patient still complaining of pain, requested for the Oxyir 10mg saying it was more effective for her. Med. given at 3027. Will monitor the patient
--- NOTE | 2017-11-24 07:30 | NUR ---
patient noted sitting up in bed watching tv, complains of pain /10, no signs of distress noted, call light in reach, bed locked and in lowest position, x 2 bed rails
[2017-11-24 08:28] LABS: BASOPHILS # (AUTO) 0.1 K/uL (0.0-8.0); EOSINOPHILS # (AUTO) 0.3 K/uL (0.0-0.7); LYMPHOCYTES # (AUTO) 2.1 K/uL (20.0-40.0); LYMPHOCYTES % (AUTO) 18.7 % (20.5-51.5); MONOCYTES # (AUTO) 0.9 K/uL (2.0-10.0); NEUTROPHILS # (AUTO) 7.9 K/uL (1.8-8.9)
[2017-11-24 08:32] LABS: EOSINOPHILS % (AUTO) 2.3 % (0.0-7.0); HEMATOCRIT 30.4 % (31.2-41.9); HEMOGLOBIN 10.2 g/dL (10.9-14.3); MEAN CORPUSCULAR HEMOGLOBIN 29.8 uug (24.7-32.8); MEAN CORPUSCULAR HGB CONC 33 g/dL (32.3-35.6); MEAN CORPUSCULAR VOLUME 89.2 fL (75.5-95.3); MONOCYTES % (AUTO) 7.9 % (0.0-11.0); NEUTROPHILS % (AUTO) 70.1 % (38.5-71.5); PLATELET COUNT (AUTO) 409 K/uL (179-408); RED BLOOD CELL COUNT(AUTO) 3.41 MIL/uL (3.63-4.92)
[2017-11-24 08:33] LABS: WHITE BLOOD COUNT (AUTO) 11.3 K/uL (3.8-11.8)
[2017-11-24 08:36] LABS: ALANINE AMINOTRANSFERASE 25 U/L (14-59); ALKALINE PHOSPHATASE 150 U/L (50-136); ASPARTATE AMINOTRANSFERASE 25 U/L (15-37); BILIRUBIN,TOTAL 0.4 mg/dL (0.2-1.0); CARBON DIOXIDE 30 mmol/L (21-32); CHLORIDE 102 mmol/L (98-107); CREATININE 0.9 mg/dL (0.6-1.3); GLUCOSE 96 mg/dL (74-106); MAGNESIUM 1.9 mg/dL (1.8-2.4); PHOSPHOROUS 3.9 mg/dL (2.5-4.9); POTASSIUM 4.3 mmol/L (3.5-5.1); TOTAL PROTEIN, SERUM 6.3 g/dL (6.4-8.2); UREA NITROGEN, BLOOD 25 mg/dL (7-18)
[2017-11-24] MEDS: ENOXAPARIN SODIUM 40 MG/0.4 ML DISP.SYRIN SQ SCH (08:47)
[2017-11-24] MEDS: ESCITALOPRAM OXALATE 10 MG TABLET PO SCH (08:49)
[2017-11-24] MEDS: MULTIVITAMINS,THERAPEUTIC TABLET PO SCH (08:49)
[2017-11-24] MEDS: BOOST PLUS 237 ML LIQUID (VERY VANILLA) PO SCH ×2 (08:50→17:24)
[2017-11-24] MEDS: OXYCODONE HCL 10 MG TAB.SR.12H PO SCH ×2 (08:50→20:41)
[2017-11-24] MEDS: DOCUSATE SODIUM 100 MG CAPSULE PO SCH ×3 (08:50→20:49)
[2017-11-24] MEDS: LISINOPRIL 10 MG TABLET PO SCH (08:51)
[2017-11-24] MEDS: CHOLECALCIFEROL 1,000 UNIT TABLET PO SCH (08:51)
[2017-11-24] MEDS: NEOMY/BACITRAC/POLYMI OINT 28.35 GM TUBE TOP SCH ×2 (08:51→17:24)
[2017-11-24 09:47] VITALS: BP 103/60
[2017-11-24] MEDS: OXYCODONE HCL 5 MG TABLET PO PRN ×2 (11:47→17:23)
--- NOTE | 2017-11-24 19:40 | NUR ---
Received patient from day shift nurse. shift report at bedside. patient laying comfortably, awake, alert and not in respiratory distress. Verbally responsive and able to make needs known. pertinent assessment completed. Safety measures provided, bed in low position x2 side rails up. call light placed within reach of pt. will continue to monitor pt.
[2017-11-24 20:33] VITALS: BP 118/64
[2017-11-24] MEDS: SENNOSIDES 1 TABLET PO SCH (20:40)
[2017-11-24] MEDS: ATORVASTATIN 10 MG TABLET PO SCH (20:40)
[2017-11-25] MEDS: OXYCODONE HCL 5 MG TABLET PO PRN ×2 (02:42→17:10)
[2017-11-25] MEDS: ALENDRONATE SODIUM 70 MG TABLET PO SCH (06:28)
--- NOTE | 2017-11-25 07:35 | NUR ---
patient noted resting in bed with eyes closed, complaints of pain 4/10 noted, no signs of distress noted, call light in reach, bed locked and in lowest position, bed alarm in place, x 2 bed rails
[2017-11-25 08:13] VITALS: BP 99/54
[2017-11-25] MEDS: ENOXAPARIN SODIUM 40 MG/0.4 ML DISP.SYRIN SQ SCH (08:56)
[2017-11-25] MEDS: MULTIVITAMINS,THERAPEUTIC TABLET PO SCH (08:57)
[2017-11-25] MEDS: OXYCODONE HCL 10 MG TAB.SR.12H PO SCH ×2 (08:57→21:09)
[2017-11-25] MEDS: CHOLECALCIFEROL 1,000 UNIT TABLET PO SCH (08:57)
[2017-11-25] MEDS: BOOST PLUS 237 ML LIQUID (VERY VANILLA) PO SCH ×2 (08:57→17:11)
[2017-11-25] MEDS: NEOMY/BACITRAC/POLYMI OINT 28.35 GM TUBE TOP SCH ×2 (08:57→17:11)
[2017-11-25] MEDS: DOCUSATE SODIUM 100 MG CAPSULE PO SCH ×2 (08:57→21:10)
[2017-11-25] MEDS: ESCITALOPRAM OXALATE 10 MG TABLET PO SCH (08:57)
[2017-11-25] MEDS: LISINOPRIL 10 MG TABLET PO SCH (08:58)
--- NOTE | 2017-11-25 20:00 | NUR ---
Received pt on bed alert, awake and oriented x4. Able to make needs known. Family member at bedside during this time. No acute distress noted. Breathing even and unlabored with normal respirations. Kept clean, dry and comfortable. Call light within reach. Safety and fall precautions observed and maintained. All needs attended.
[2017-11-25 20:34] VITALS: BP 110/49
[2017-11-25] MEDS: ATORVASTATIN 10 MG TABLET PO SCH (21:09)
[2017-11-25] MEDS: SENNOSIDES 1 TABLET PO SCH (21:09)
[2017-11-26] MEDS: OXYCODONE HCL 5 MG TABLET PO PRN ×3 (04:03→16:35)
--- NOTE | 2017-11-26 05:37 | NUR ---
Patient slept well throughout the shift. No acute distress noted. Complained of 7/10 left hip pain, medicated with oxycodone 10mg PRN. Relief noted. No SOB noted. Changed per soiling. Safety and fall precautions observed and maintained. Call light within reach. All needs attended.
--- NOTE | 2017-11-26 07:35 | NUR ---
patient noted sitting in bed resting, complains of pain 4/10 and states it is bearable at this time, no signs of distress noted, call light in reach, bed locked and in lowest position, bed alarm in place, diaper is dry at this time
[2017-11-26 08:00] VITALS: BP 166/33
[2017-11-26] MEDS: ENOXAPARIN SODIUM 40 MG/0.4 ML DISP.SYRIN SQ SCH (08:28)
[2017-11-26] MEDS: ESCITALOPRAM OXALATE 10 MG TABLET PO SCH (08:29)
[2017-11-26] MEDS: CHOLECALCIFEROL 1,000 UNIT TABLET PO SCH (08:30)
[2017-11-26] MEDS: BOOST PLUS 237 ML LIQUID (VERY VANILLA) PO SCH ×2 (08:31→17:41)
[2017-11-26] MEDS: MULTIVITAMINS,THERAPEUTIC TABLET PO SCH (08:31)
[2017-11-26] MEDS: OXYCODONE HCL 10 MG TAB.SR.12H PO SCH ×2 (08:31→20:50)
[2017-11-26] MEDS: LISINOPRIL 10 MG TABLET PO SCH (08:31)
[2017-11-26] MEDS: DOCUSATE SODIUM 100 MG CAPSULE PO SCH ×2 (08:31→20:49)
[2017-11-26] MEDS: NEOMY/BACITRAC/POLYMI OINT 28.35 GM TUBE TOP SCH ×2 (08:35→17:39)
--- NOTE | 2017-11-26 19:30 | NUR ---
Received patient sitting up in bed. Alert and verbally responsive. Able to make needs known. Denies any pain and discomfort. No acute distress. No SOB. Kept clean and dry. All needs attended to promptly. Call light within reach. Will continue to monitor.
[2017-11-26 20:27] VITALS: BP 97/58
[2017-11-26] MEDS: ATORVASTATIN 10 MG TABLET PO SCH (20:48)
[2017-11-26] MEDS: SENNOSIDES 1 TABLET PO SCH (20:49)
--- NOTE | 2017-11-27 06:11 | NUR ---
Patient slept comfortably throughout the night. No c/o pain and discomfort. No acute distress. No SOB. Kept clean and dry. All needs attended to promptly. Call light within reach. Will continue to monitor.
[2017-11-27 08:00] VITALS: BP 124/58
[2017-11-27] MEDS: BOOST PLUS 237 ML LIQUID (VERY VANILLA) PO SCH ×2 (08:00→17:26)
[2017-11-27] MEDS: MULTIVITAMINS,THERAPEUTIC TABLET PO SCH (08:36)
[2017-11-27] MEDS: DOCUSATE SODIUM 100 MG CAPSULE PO SCH ×2 (08:36→20:30)
[2017-11-27] MEDS: CHOLECALCIFEROL 1,000 UNIT TABLET PO SCH (08:37)
[2017-11-27] MEDS: ESCITALOPRAM OXALATE 10 MG TABLET PO SCH (08:37)
[2017-11-27] MEDS: OXYCODONE HCL 10 MG TAB.SR.12H PO SCH ×2 (08:38→20:30)
[2017-11-27] MEDS: ENOXAPARIN SODIUM 40 MG/0.4 ML DISP.SYRIN SQ SCH (08:42)
[2017-11-27] MEDS: LISINOPRIL 10 MG TABLET PO SCH (09:00)
[2017-11-27] MEDS: NEOMY/BACITRAC/POLYMI OINT 28.35 GM TUBE TOP SCH ×2 (09:28→17:20)
[2017-11-27] MEDS: OXYCODONE HCL 5 MG TABLET PO PRN (13:11)
--- NOTE | 2017-11-27 13:38 | NUR ---
INTERDISCIPLINARY TEAM CONFERENCE
--- NOTE | 2017-11-27 18:13 | NUR ---
Pt sitting comfortably in semi-fowlers. Incisional wound care provided and dressing changed. No s/s of infection at this time. Pt denies any c/o pain or anxiety. Pt assisted to the bathroom & voided x1. Pt safely returned to bed. Bed in locked and lowest position. Call light within reach. All comfort and safety measures met at this time. Will continue to monitor and endorse to oncoming classifier operator.
--- NOTE | 2017-11-27 20:00 | NUR ---
received pt resting comfortably in bed alert and awake. Able to make needs known. No acute distress noted. Complained of 5/10 left hip pain. Routine pain medication was given. Safety and fall precautions observed and maintained. Vital signs stable. Kept clean, dry and comfortable. Call light placed within reach. All needs attended.
[2017-11-27 20:25] VITALS: BP 139/63
[2017-11-27] MEDS: ATORVASTATIN 10 MG TABLET PO SCH (20:30)
[2017-11-27] MEDS: SENNOSIDES 1 TABLET PO SCH (20:30)
--- NOTE | 2017-11-28 05:12 | NUR ---
Patient slept well throughout the shift. No acute distress noted. No complaints of pain or discomfort at this time. Kept clean, dry and comfortable. Safety and fall precautions observed and maintained. Call light within reach. All needs attended.
[2017-11-28] MEDS: CHOLECALCIFEROL 1,000 UNIT TABLET PO SCH (08:21)
[2017-11-28] MEDS: MULTIVITAMINS,THERAPEUTIC TABLET PO SCH (08:21)
[2017-11-28] MEDS: ESCITALOPRAM OXALATE 10 MG TABLET PO SCH (08:21)
[2017-11-28] MEDS: OXYCODONE HCL 10 MG TAB.SR.12H PO SCH (08:23)
[2017-11-28] MEDS: LISINOPRIL 10 MG TABLET PO SCH (08:23)
[2017-11-28] MEDS: DOCUSATE SODIUM 100 MG CAPSULE PO SCH (08:23)
[2017-11-28] MEDS: NEOMY/BACITRAC/POLYMI OINT 28.35 GM TUBE TOP SCH (08:24)
[2017-11-28] MEDS: ENOXAPARIN SODIUM 40 MG/0.4 ML DISP.SYRIN SQ SCH (08:24)
[2017-11-28] MEDS: BOOST PLUS 237 ML LIQUID (VERY VANILLA) PO SCH (08:24)
[2017-11-28 08:49] VITALS: BP 114/64
--- NOTE | 2017-11-28 09:37 | NUR ---
pt seen on rounding. pt continues to be alert and oriented. vitals stable. no pain noted. pt afebrile. bp and hr wnl. pt took meds whole. no signs of depression noted. will continue to monitor.
[2017-11-28] MEDS: OXYCODONE HCL 5 MG TABLET PO PRN (14:50)
--- NOTE | 2017-11-28 15:52 | NUR ---
dishcarged at 1530. pt vitals stable no pain noted. pt given discharge instructions. pt verbalizes understanding. pt given instructions to follow up with dr south. pt given instructions with use of exitcare on having hip replacement, care after, smoking cessation and fall prevention. pt understands. 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 pt had prescription for percocet to be taken to pharmacy. pt left with commode and walker. pt also left with all belonings. discharge instructions signed and belongings list signed. pt left with . left hip pictures taken. no sob noted. no signs of acute distress. pt will have home health upon discharge.
== END 2017-11-28 15:59 | disposition home health service (06) | DRG 559 ==
PROVIDERS: ADMIT Physical Medicine & Rehabilitation Pain Medicine; ATTEND Physical Medicine & Rehabilitation Pain Medicine
DX: S72.142D Displaced intertrochanteric fracture of left femur, subsequent encounter for closed fracture with routine healing (principal); N17.0 Acute kidney failure with tubular necrosis; E43 Unspecified severe protein-calorie malnutrition; D68.59 Other primary thrombophilia; I11.9 Hypertensive heart disease without heart failure; D62 Acute posthemorrhagic anemia; S22.41XD Multiple fractures of ribs, right side, subsequent encounter for fracture with routine healing; W01.0XXD Fall on same level from slipping, tripping and stumbling without subsequent striking against object, subsequent encounter; F32.9 Major depressive disorder, single episode, unspecified; M81.0 Age-related osteoporosis without current pathological fracture; R26.9 Unspecified abnormalities of gait and mobility; M25.551 Pain in right hip; I95.1 Orthostatic hypotension; K44.9 Diaphragmatic hernia without obstruction or gangrene; E78.5 Hyperlipidemia, unspecified; R91.1 Solitary pulmonary nodule
CPT/HCPCS: 36415; 82306; 83550; 83735; 84100; 84443; 85025; 87070; 87077; 92526; 92610; 97110; 97112; 97116; 97165; 97530; 97535; A4217; J1650; J2543; J7050; J7060